=== PATIENT | female | born 1990 | race Caucasian/White ===

== ENCOUNTER 2019-03-27 21:50 | Inpatient (IN) ==
[~2019-03-27 21:50] MED LIST: *HR* Nalbuphine 10 MG/ML AMPUL IVP PRN; Famotidine 20 MG/2 ML VIAL IVP PRN; Lidocaine 1% 20 ML MDV INFILT PRN; Metoclopramide 10 MG/2 ML VIAL IVP PRN; Naloxone 0.4 MG/ML INJ IVP PRN; Ondansetron 4 MG/2 ML VIAL IVP PRN
[2019-03-27] MEDS ORDERED: Ringers Solution, Lactated 1,000 ML IVC SCH (22:00)
[2019-03-27] MEDS ORDERED: FLU Vac QV 19-20 (6Month+)/PF 0.5 ML SYRINGE IM ONE (22:27)
[2019-03-27 22:45] LABS: Amphetamine Screen,Urine Negative ng/mL (Cutoff=1000); Barbiturate Screen,Urine Negative ng/mL (Cutoff=200); Benzodiazepines Screen,Urine Negative ng/mL (Cutoff=200); Cannabinoid Screen,Urine Negative ng/mL (Cutoff = 50); Cocaine Screen,Urine Negative ng/mL (Cutoff= 300); Opiate Screen,Urine Negative ng/mL (Cutoff=300); Phencyclidine Screen,Urine Negative ng/mL (Cutoff=25)
[2019-03-27 23:14] LABS: Basophils # 0.1 K/mcL (0.0-0.2); Basophils % 0.4 %; Eosinophils # 0.1 K/mcL (0.0-0.6); Eosinophils % 0.6 %; Hematocrit 35.1 % (35.3-44.9); Immature Granulocytes % 0.4 % (0-4); Lymphocytes # 1.6 K/mcL (0.6-4.6); Lymphocytes % 12.4 %; Mean Corpuscular HGB Conc 34.2 g/dL (31.6-35.5); Mean Corpuscular Hemoglobin 30.7 pg (28.0-33.3); Mean Corpuscular Volume 89.8 fL (83.0-100.0); Mean Platelet Volume 10.1 fL (9.4-12.4); Monocytes # 0.8 K/mcL (0.0-1.3); Monocytes % 6.4 %; Neutrophils # 10.1 K/mcL (1.6-8.9); Platelet Count 157 K/mcL (140-400); Red Blood Count 3.91 M/mcL (3.82-4.97); Red Cell Distribution Width 11.9 % (11.5-14.5); Segmented Neutrophils % 79.8 %; White Blood Count 12.6 K/mcL (4.3-11.1)
[2019-03-27] MEDS ORDERED: *HR* FentaNYL (PF) 100 MCG/2 ML VIAL EP ONE (23:35)
[2019-03-27] MEDS ORDERED: Ropivacaine/PF 0.2% 20 ML VIAL EP ONE (23:35)
[2019-03-27] MEDS ORDERED: Epidural Premix (fent/bupiv) 110 ML EP ONE (23:41)
[2019-03-27] MEDS ORDERED: Epidural Premix (fent/bupiv) 110 ML EP SCH (23:45)
[2019-03-28] MEDS ORDERED: Oxytocin 20 units/ LR 1000 mL 20 UNIT/1,000 ML BAG IVC SCH (04:44)
[2019-03-28] MEDS ORDERED: Acetaminophen 325 MG TABLET PO PRN (04:44)
[2019-03-28] MEDS ORDERED: *HR* HYDROcodone/Acet 5/325 mg TABLET PO PRN (04:44)
[2019-03-28] MEDS ORDERED: Rho Immune Globulin 1,500 UNIT SYRINGE IM PRN (04:44)
[2019-03-28] MEDS ORDERED: Benzocaine/Menthol 56 GM AEROSOL SPRAY TP PRN (07:03)
[2019-03-28] MEDS: Prenatal Vit/FA 1 EACH TABLET PO SCH (07:42)
[2019-03-28] MEDS: Ibuprofen 600 MG TABLET PO PRN ×3 (07:48→23:12)
[2019-03-29] MEDS: Prenatal Vit/FA 1 EACH TABLET PO SCH (07:26)
[2019-03-29] MEDS: Ibuprofen 600 MG TABLET PO PRN (07:26)
[2019-03-29 07:31] VITALS: BP 105/68
== END 2019-03-29 11:50 | disposition home or self-care (01) | DRG 806 ==
LOC: 1NENULAB → 1NENUOBS 03-28 06:38
PROVIDERS: ADMIT Registered Nurse; ATTEND Registered Nurse